=== PATIENT | male | born 1985 | race Two or more races ===

== ENCOUNTER 2018-10-13 09:00 | Emergency (ER) | payer BC ==
[~2018-10-13] VITALS: Ht 182.9 cm; Wt 95.7 kg
[2018-10-13 09:08] VITALS: Ht 182.9 cm; Wt 95.7 kg
[2018-10-13 11:50] VITALS: BP 134/84
== END 2018-10-13 11:50 | disposition home or self-care (01) ==
LOC: ED 09:00
DX: N43.3 Hydrocele, unspecified (principal)